=== PATIENT | male | born 1990 | race Two or more races ===

== ENCOUNTER 2018-10-24 23:54 | Emergency (ER) | payer MEDICAID ==
[~2018-10-24] VITALS: Ht 162.6 cm; Wt 72.6 kg
[2018-10-25 00:18] VITALS: BP 137/93
[2018-10-25] MEDS ORDERED: cefTRIAXone SOD 1,000 MG VL IM ONE (02:00)
== END 2018-10-25 02:09 | disposition home or self-care (01) ==
LOC: ER 23:54
DX: N39.0 Urinary tract infection, site not specified (principal)
CPT/HCPCS: 81002; 96372; 99283; J0696